=== PATIENT | female | born 1940 | race Caucasian/White ===

== ENCOUNTER 2024-02-28 18:43 | Observation (INO) | payer MEDICARE, SELFPAY ==
[2024-02-28 12:32] VITALS: BP 159/60
--- NOTE | 2024-02-28 14:58 | ED.GENMED ---
History of Present Illness
General
Chief Complaint: Change in Mental Status
Source: patient, family (Daughter Yanna) and ambulance crew
Exam Limitations: altered mental status
Time Seen by Provider: 02/28/24 13:24
Travel History
Have you had any contact with someone who has COVID-19?: No
Do you have any symptoms of coronavirus? Fever > 100 degrees, chills, cough, shortness of breath, sore throat, loss of taste or smell, muscle aches, or headache?: No
History of Present Illness
History of Present Illness:
83-year-old female from home, she states she is here because 'they came here, my daughter says I was acting crazy and I was not.' Patient is upset because she wanted to go to [facility], she is not aware of the name of this hospital
where she is now, she has been belligerent to the nurses not allowing them to complete their assessment, not allowing blood draw or urine collection.
On initial exam patient states she does not want any blood work or urine collection as she had blood work at her PCP Dr. Elizabeth Peters's office within the past week and we should get those results.
I spoke with daughter Yanna states she herself has a behavioral clinical background, her mother lives with her and has been slowly declining functionally and mentally but much worse in the past few weeks and worse today. This morning she found her
mother screaming and yelling at stuffed animals, being paranoid saying there were people in the house that were after her, they were following her, they are hiding and are going to get her. She also did not recognize her daughter saying her
daughter has bright blond hair and you have black hair, neither of which are true. She states during 1 hospitalization recently after neck injury her mother was aggressive, hitting and punching, was diagnosed with a UTI this was within the past 2
months and was put on antibiotics.
Daughter states patient is unmanageable at home and is not comfortable taking her back.
She states family is aware this decline and they have been thinking about 6 moving her to a place for mom,' for now she is comfortable with long-term memory care placement with the [place] where most of her family is.
I spoke with nurse Perez at Dr. Elizabeth Peters's office who states she is very familiar with this patient, patient is very difficult, her difficulty waxes and wanes, she is argumentative with every specialist that she seen she however has not been
confused but can be very belligerent and aggressive.
Past History
Past History
ED Past Medical History: Psychiatric (Dementia)
ED Past Surgical History: Gynecological (breast CA with lumpectomy, hysterectomy)
Social History
Tobacco: Non-smoker
Alcohol: None
Personal:
Living: with family (lives with daughter)
Review of Systems
Review of Systems
Allergies reviewed?: Yes
All Other Systems: ROS reviewed and negative except as documented in HPI and ROS
Constitutional: Denies fever or fatigue
Respiratory: Denies trouble breathing
Cardiac: Denies chest pain
ABD/GI: Denies abdominal pain, nausea, vomiting or diarrhea
: Denies dysuria, frequency, incontinence, difficulty voiding or urgency
Musculoskeletal: Reports neck pain (post op C spine surgery 12/10/23 after a fall); Denies edema
Neurological: Denies headache
Psychiatric: Reports hallucinations (reported by daughter) and other (paranoia reported by daughter)
Phy Exam
Physical Exam
Physical Exam:
GENERAL: No acute distress. Alert to name, does not know where she is.
CONSTITUTIONAL: Afebrile.
EYES: PERRL, conjunctivae normal
Neck: supple. well healed incision from C spine surgery 12/10/23
ENMT: dry mucus membranes, Pharynx nl
RESPIRATORY: Regular respirations, nonlabored, lungs clear.
CARDIOVASCULAR: Regular rate and rhythm, no murmurs, no rubs.
GI: Soft, nontender, normal BS
MUSCULOSKELETAL: Moves with ease. Well perfused. No edema
SKIN: Warm, dry, pink
PSYCH: Cantankerous mood and affect. Well kept,argumentative.
NEUROLOGIC: Awake, alert and oriented x 1. Speech clear. No focal neurological deficits
Course
Orders/Labs/Results
Orders:
Orders
02/28/24 13:25
0.9% Sodium Chloride 500 ml [Nss] 500 ml IV BOLUS
02/28/24 15:35
CT Head W/o Iv Contrast Urgent
Comment:
Reason For Exam: mental status change, delerium, on Eliquis
02/28/24 15:36
Complete Blood Count/With Diff Urgent
Comprehensive Metabolic Panel Urgent
Urinalysis Reflex To Culture Urgent
Date Specimen was Collected: 02/28/24
Time Specimen was Collected: 13:33
Urine Microscopic Reflex Cult Urgent
Urine Culture Urgent
MARCEL Source: U
Specimen Description:
Date Specimen was Collected: 02/28/24
Time Specimen was Collected: 13:33
02/28/24 18:05
Admit/Transfer Patient As Directed
Co-Sign Provider:
Level of Care: Observation services
Assign to:: Medical/Surgical
Physician / Group: moise
Diagnosis: progressive dementia
02/28/24 18:06
Code Status As Directed
Resuscitation Status: Do not resuscitate
Reached after discussion with pt or family/Healthcare POA: Yes
DNR Bracelet Application ONCE
02/28/24 23:00
Atorvastatin [Lipitor] 20 mg PO HS
02/28/24 23:35
Alprazolam [Xanax] 1 mg PO TID
Baclofen [Lioresal] 5 mg PO TID
Latanoprost [Xalatan Ophthalmic Solution] See Dose Instructions BOTH EYES HS
Metoprolol Xl [Toprol Xl] 25 mg PO HS
02/29/24 01:13
Apixaban [Eliquis] 5 mg PO BID
02/29/24 01:13
Activity As Directed
Activity Level: As Tolerated
Pneumatic Compression Sleeves As Directed
Type: Knee high
Vital Signs As Directed
Frequency: Per unit guidelines
DX Deep Vein Thrombosis Video Routine
02/29/24 05:38
Comprehensive Metabolic Panel IN AM
02/29/24 05:39
Complete Blood Count/With Diff IN AM
02/29/24 Breakfast
Regular
At Your Request: Limited Participation
Does patient need a safe tray?: No
02/29/24 08:00
Ascorbic Acid [Vitamin C] 1,000 mg PO DAILY
Lisinopril [Zestril] 40 mg PO DAILY
Metoprolol Xl [Toprol Xl] 37.5 mg PO DAILY
Paroxetine [Paxil] 20 mg PO DAILY
02/29/24 12:00
Digoxin [Lanoxin] 125 mcg PO DAILY@1200
Abnormal Lab Results
02/28/24
15:36
RBC 4.15 L 10^6/uL
(4.20-5.40)
MPV 10.8 H fL
(7.4-10.4)
Neutrophils % 78.2 H %
(42.2-75.2)
Lymphocytes % 15.5 L %
(20.5-51.1)
Carbon Dioxide 32 H mmol/L
(22-30)
Glucose 140 H mg/dl
(70-99)
Urine Nitrite (Reflex) Positive A
(Negative)
Urine Bacteria (Reflex) Few A
(Negative)
02/28/24 15:36
02/28/24 15:36
Vital Signs
Initial and Last Documented VS:
Initial Vital Signs
Temp Pulse Resp BP Pulse Ox
97.6 F 59 20 159/60 100
02/28/24 12:32 02/28/24 12:32 02/28/24 12:32 02/28/24 12:32 02/28/24 12:32
Last Documented Vital Signs
Temp Pulse Resp BP Pulse Ox
98.3 F 46 18 152/55 97
02/29/24 08:41 02/29/24 08:41 02/28/24 22:36 02/29/24 08:41 02/29/24 08:41
MDM/Problems Addressed
Differential Diagnosis Includes:
progressing dementia, UTI, dehydration
MDM/Problems Addressed:
83-year-old female from home, she states she is here because 'they came here, my daughter says I was acting crazy and I was not.' Patient is upset because she wanted to go to [facility], she is not aware of the name of this hospital
where she is now, she has been belligerent to the nurses not allowing them to complete their assessment, not allowing blood draw or urine collection.
On initial exam patient states she does not want any blood work or urine collection as she had blood work at her PCP Dr. Elizabeth Peters's office within the past week and we should get those results.
I spoke with daughter Yanna states she herself has a behavioral clinical background, her mother lives with her and has been slowly declining functionally and mentally but much worse in the past few weeks and worse today. This morning she found her
mother screaming and yelling at stuffed animals, being paranoid saying there were people in the house that were after her, they were following her, they are hiding and are going to get her. She also did not recognize her daughter saying her
daughter has bright blond hair and you have black hair, neither of which are true. She states during 1 hospitalization recently after neck injury her mother was aggressive, hitting and punching, was diagnosed with a UTI this was within the past 2
months and was put on antibiotics.
Daughter states patient is unmanageable at home and is not comfortable taking her back.
She states family is aware this decline and they have been thinking about 6 moving her to a place for mom,' for now she is comfortable with long-term memory care placement with the [place] where most of her family is.
I spoke with nurse Ana at Dr. Elizabeth Peters's office who states she is very familiar with this patient, patient is very difficult, her difficulty waxes and wanes, she is argumentative with every specialist that she seen she however has not been
confused but can be very belligerent and aggressive.
Retrieved records from [facility] physicians PCP office
Patient with history of A-fib on Eliquis, HTN. C1-3 posterior instrumented fusion on 12/09/2023 after a fall, former smoker, no EtOH. She is allergic to Benadryl and iodine.
Reviewed records from her neurologist 02/03/24 during her hospitalization for 'a series of falls,' C-spine injury after a fall, she remains on Eliquis, and it was recommended that she have a Watchman intervention.
His physical exam revealed the patient that was 'alert and oriented x 3, comprehension and language intact, speech clear and coherent.'
Must use walker.
Note scanned into chart.
Retrieved labs from 02/07/24: No clinically significant abnormalities. Results scanned into chart. 4:27 PM
4:27 PM
Patient evaluated by psychiatrist Dr. Ryder Hameed who states he does not 'see acute symptoms or signs of psychosis now'
CBC normal
CMP normal
UA negative
Head CT shows nothing acute
Spoke with daughter Yanna again, again she is refusing to take pt back as she feels pt is unsafe, has frequent falls on Eliquis. She supports placing pt in longterm until her family can figure out a [place] health care facility plan.
Consult in for Case Management and message left on phone that pt needs placement. Awaiting to hear from them
*Critical Care Note
Total Time (30-74mins, 75-104mins- exclusive of procedures): Not Applicable
ED Attending Note
-
Portions of this chart may have been created with voice recognition software.� Occasional wrong word or��sound alike� substitutions may have occurred due to the inherent limitations of voice recognition software.
Discharge Plan
Departure
Patient Disposition: Admit
Date of Disposition: 02/28/24
Time of Disposition: 17:24
Presentation/result/management discussed w/ accepting MD/DO: Hospitalist
Condition: Fair
Discharge Problem:
At high risk for falls, Acute on chronic alteration in mental status
Interventions
Interventions:
*Risk Screen - Suicide Last Done: 02/28/24 12:32
*General Assessment Last Done: 02/28/24 12:32
*Neglect/Abuse Screening Last Done: 02/28/24 12:32
*ED COVID-19 Vaccine History Last Done: 02/28/24 14:23
ED-Psychological Assessment Last Done: 02/28/24 14:22
ED- Neurological Assessment Last Done: 02/28/24 14:22
ED Swallowing Screen Last Done: 02/28/24 19:59
[2024-02-28 15:51] LABS: % Basophils 0.4 % (0-2); % Eosinophils 0.6 % (0-6); % Immature Granulocytes 0.3 % (0-0.5); % Lymphocytes 15.5 % (20.5-51.1); % Neutrophils 78.2 % (42.2-75.2); Absolute Eosinophils 0.1 10^3/uL (0-0.7); Absolute Lymphocytes 1.2 10^3/uL (1.2-3.4); Absolute Monocytes 0.4 10^3/uL (0.1-0.6); Absolute Neutrophils 6.2 10^3/uL (1.4-6.5); Hematocrit 38.7 % (37.0-47.0); Hemoglobin 12.8 g/dL (12.0-16.0); Mean Corp Hgb Conc. 33.1 g/dL (33.0-37.0); Mean Corpuscular Hgb 30.8 pg (27.0-31.0); Mean Corpuscular Volume 93.3 fL (81.0-99.0); Mean Platelet Volume 10.8 fL (7.4-10.4); Nucleated Red Blood Cells % 0 %; Platelet Count 255 10^3/uL (130-400); Red Blood Cell Count 4.15 10^6/uL (4.20-5.40); Red Cell Dist. Width 13.5 % (11.5-14.5); Urine Albumin Negative (Neg - Trace); Urine Bilirubin Negative (Negative); Urine Character Clear (Clear); Urine Color Yellow; Urine Glucose Negative (Negative); Urine Ketone Negative (Negative); Urine Leukocyte Negative (Negative); Urine Nitrite Positive (Negative); Urine Occult Blood Negative (Negative); Urine Specific Gravity 1.025 (<1.030); Urine Urobilinogen Negative (Neg - 1+); White Blood Cell Count 7.9 10^3/uL (4.8-10.8)
[2024-02-28 16:03] LABS: ALT (SGPT) 15 U/L (0-35); AST (SGOT) 28 U/L (14-36); Albumin 4.2 g/dl (3.5-5.0); Alkaline Phosphatase 90 U/L (38-126); Blood Urea Nitrogen 15 mg/dl (7-17); Calcium 9.5 mg/dl (8.4-10.2); Carbon Dioxide 32 mmol/L (22-30); Chloride 104 mmol/L (98-107); Glucose 140 mg/dl (70-99); Sodium 138 mmol/L (135-145); Total Bilirubin 0.5 mg/dl (0.2-1.3); Total Protein 7.3 g/dl (6.3-8.2); eGFR > 60.00
[2024-02-28 16:12] LABS: Urine Bacteria Few (Negative); Urine Red Blood Cell None Seen /HPF (0-2); Urine White Cell 0-2 /HPF (0-5)
--- NOTE | 2024-02-28 17:22 | CS.PSYCHR ---
Consult Summary - Psychiatry
-
Pt is 83 yo female seen due to reported agitation and onset of psychosis. Pt aware of the situation to a degree, stating people think she is crazy. Patient noted to be somewhat belligerent/argumentative with the nurses not allowing them to
complete their assessment, blood draw or urine collection. Dtr reported pt argumentative at baseline, worse over the past week, with onset of paranoia and possible hallucinations. Pt noted with steady mental/cognitive decline over months. Pt
acknowledges some decrease in short-term memory for the past couple months. She states her temperament is due to being '[place]'. Pt denies feeling depressed. She states PCP prescribes Xanax 1 mg up to TID as needed, for anxiety related to loss
of 12 yrs ago.
Psych Hx: anxiety- prescribed Xanax and Paxil 20 mg QD by PCP
PMH: dementia, breast CA with lumpectomy, hysterectomy. During hospitalization recently after neck injury, pt reportedly had aggressive behavior, was diagnosed with a UTI, apparent delirium.
SH: lives with daughter, who is reportedly concerned about being able to manage pt at home. ; retired from job at [employer] for 30 + years.
Family is aware of cognitive decline and have been considering placement options in [place], where most of pt's family lives.
MSE: alert, oriented to self, calm, cooperative with interview, answering questions. Able to discuss the past and make conversation. Affect mildly irritable, mood stable. No agitation. No overt signs of delusions or hallucinations. Insight
limited.
Imp: Dementia, with hx of behavior disturbance, appears calm at this point. No signs of psychosis
Rec: Continue current management, with medications prescribed by PCP. I do not seen any indication for inpatient treatment.
I would not recommend any additional psychotropic medications for now. Outpatient psychiatric follow-up may be helpful for med mgt.
--- NOTE | 2024-02-28 17:30 | EDRN ---
Pt climbed out of stretcher, using bedside table as walker. Pt demanding to have a cell phone to call her daughter. This RN and senior quality technician attempt to redirect patient back to stretcher, pt refused stating ' I don't give a shit if I fall'. This RN
responded using therapeutic communication redirecting patient and with assistance from ER, 2nd RN and senior quality technician patient was guided back to stretcher. Pt provided with phone. Pt claiming that phone is bugged and threatened to throw phone on the floor.
Phone removed from patient, pt given ice water and warm blanket, side rails up x2 and lights dimmed.
--- NOTE | 2024-02-28 18:07 | HPS.HSE ---
Addendum entered and electronically signed by Jaden Connell MD 02/28/24 18:10:
Urine culture pending.
Original Note:
Family Physician
-
Family Physician: NOT KNOW UNKNOWN - PT DOES
Chief Complaint
-
altered mental status
History of Present Illness
83-year-old female past medical history of atrial fibrillation, hypertension, anxiety/depression, presenting for altered mental status. Patient has been having worsening cognitive decline over the past 6 months with personality changes over the
past 3 months particularly worse over the past few weeks and past day. Patient states that daughter thought she was acting crazy but patient denies acting this way. She was upset because she wanted to go to [facility] and refusing lab
work. At this time patient denies any complaints and states that daughter is trying to get rid of her. She states that she is under strain at home while living with her daughter.
Daughter states that patient has been slowly declining functionally and mentally but has been particularly worse past few weeks and today. This morning patient was screaming and yelling at staff and was, being paranoid and stating that there were
people in the house that were after her, following her and out to get her. She also did not recognize her daughter. After 1 recent hospitalization 2 months ago after neck injury patient was aggressive, hitting and punching and was diagnosed with
UTI. Patient is unmanageable at home. Sometimes with suicidal thoughts. Due to the decline over the past several months family is thinking about memory care placement in [place] where her other family is.
As per her primary care office patient is very difficult and argumentative but is not normally confused.
Patient had a neck fracture from a fall 4 months ago and had surgery and afterwards wore neck collar with eventual physical therapy. She was also treated for UTI at this time.
Medical History
Past Medical History
Past Medical History: Reports Other (atrial fibrillation, hypertension, anxiety/depression,)
Past Surgical History: Reports None
Social History
Tobacco: Non-smoker
Alcohol: None
Drug: None
Family History
Family History: Not pertinent
Allergies / Home Medications
Allergies reflects when Allergies were last updated in [employer].
Home Medications with original date entered in [employer]
Allergy/Medication List:
Allergies
Allergy/AdvReac Type Severity Reaction Status Date / Time
diphenhydramine Allergy Unknown Verified 02/28/24 16:48
[From Benadryl]
Iodinated Contrast Media Allergy Unknown Verified 02/28/24 16:48
iodine Allergy Unknown Verified 02/28/24 16:48
mushroom Allergy Unknown Uncoded 02/28/24 16:48
Home Medications
Excedrin 1 tab PO DAILY PRN headache 02/28/24
Loprost 1 drp BOTH EYES DAILY 02/28/24
alprazolam 1 mg tablet 1 mg PO TID 02/28/24
apixaban 5 mg tablet 5 mg PO BID 02/28/24
ascorbic acid (vitamin C) 1,000 mg tablet (Vitamin C) 1,000 mg PO DAILY 02/28/24
baclofen 5 mg tablet 5 mg PO TID 02/28/24
benazepril 40 mg tablet 40 mg PO DAILY 02/28/24
digoxin 125 mcg (0.125 mg) tablet 125 mcg PO DAILY 02/28/24
latanoprost 0.005 % eye drops 1 drp BOTH EYES HS 02/28/24
metoprolol succinate 25 mg tablet,extended release 24 hr 25 mg PO HS 02/28/24
metoprolol succinate 25 mg tablet,extended release 24 hr 37.5 mg PO DAILY 02/28/24
paroxetine HCl 20 mg tablet 20 mg PO DAILY 02/28/24
simvastatin 40 mg tablet 40 mg PO HS 02/28/24
vitamin A-vitamin D3 1,500 mcg PO DAILY 02/28/24
Review of Systems
-
History Source: Patient
A 12 point ROS was completed and negative except as noted: Yes
Constitutional: Reports No Symptoms
EENT: Reports No Symptoms
Respiratory: Reports No Symptoms
Cardiac: Reports No Symptoms
Abdomen/GI: Reports No Symptoms
: Reports No Symptoms
Musculoskeletal: Reports No Symptoms
Skin: Reports No Symptoms
Neurological: Reports No Symptoms
Endocrine: Reports No Symptoms
Hematologic/Lymphatic: Reports No Symptoms
Psych: Reports No Symptoms
Physical Exam
Vital Signs
Vital Signs
Temp Pulse Resp BP Pulse Ox
97.6 F 59 20 159/60 100
02/28/24 12:32 02/28/24 12:32 02/28/24 12:32 02/28/24 12:32 02/28/24 12:32
Physical Exam
General: Well Developed, Well Nourished and No Apparent Distress
HEENT: NormoCephalic, Moist mucous membranes and Atraumatic
Respiratory: Clear
Cardiac: S1/S2 and Regular Rhythm; No Murmur or Rub
GI: Soft, Non Tender, Non Distended and Normal Bowel Sounds; No Organomegaly
Rectal: Deferred by Provider
Musculoskeletal: No Clubbing, No Cyanosis and No Edema
Skin: No Rash
Neuro: Nonfocal/grossly intact
Laboratory Results
-
02/28/24 15:36
02/28/24 15:36
Laboratory Results
Total Bilirubin 0.5 mg/dl (0.2-1.3) 02/28/24 15:36
AST 28 U/L (14-36) 02/28/24 15:36
ALT 15 U/L (0-35) 02/28/24 15:36
Alkaline Phosphatase 90 U/L (38-126) 02/28/24 15:36
Data Reviewed
-
Lab Data: Labs Reviewed by me
Old Records: Reviewed
Impression/Plan
-
IMPRESSION:
PLAN:
# Metabolic encephalopathy likely due to progressive dementia
-Patient denies any complaints, and is alert, doubt any acute underlying medical condition at this time
-Urinalysis shows clear urine, only 0-2 WBC, positive nitrates but negative leukocyte esterase not convincing for UTI
-CT head shows no acute abnormality
-seen by psych
-Case management consulted
Cervical neck fracture s/p surgery 4 months ago
-undergoing PT
Atrial fibrillation unspecified type
-Continue Eliquis
-Continue digoxin
-Continue metoprolol
Essential hypertension
-Continue benazepril
Anxiety/depression
-Continue alprazolam, paroxetine
DNR/DNI
DVT prophylaxis�SCDs
Regular diet
[2024-02-28 20:52] VITALS: BP 180/73
--- NOTE | 2024-02-28 20:57 | EDRN ---
Patient attemtping to climb out of stretcher, threw water at robotics technologist and was attempting to bite, kick, scratch and hit staff in room. Pt was hallucinating, talking to individuals that were not in the room. Pt had to be restrained by 2 ER techs and 2
RNs, pt then verbally insulting to staff, calling all staff in the room 'idiots' and ' weak'. Pt stated ' you should all just '. Pt unable to be redirected, therapeutic communication not effective. Dr. Almeida made aware.
[2024-02-28 21:00] VITALS: BP 187/84
[2024-02-28 22:36] VITALS: BP 191/76
[2024-02-28 23:00] VITALS: BP 132/100
[2024-02-28 23:17] VITALS: BP 153/69
[2024-02-28] MEDS: LIORESAL 5 MG PO (23:48)
[2024-02-28] MEDS: XANAX 1 MG PO (23:49)
[2024-02-28] MEDS: TOPROL XL 25 MG PO (23:49)
[2024-02-29] VITALS (7 sets, daily range): BP systolic 135–161; BP diastolic 53–60; BMI 23.6; BMI 23.3
[2024-02-29] MEDS: XALATAN OPHTHALMIC SOLUTION 1 DROP BOTH EYES ×2 (01:23→21:36)
[2024-02-29] MEDS: LIPITOR PO (01:28)
[2024-02-29] MEDS: ELIQUIS PO (01:28)
[2024-02-29 06:25] LABS: % Basophils 0.5 % (0-2); % Eosinophils 1.5 % (0-6); % Immature Granulocytes 0.2 % (0-0.5); % Lymphocytes 24.3 % (20.5-51.1); % Monocytes 11.6 % (1.7-9.3); % Neutrophils 61.9 % (42.2-75.2); Absolute Eosinophils 0.1 10^3/uL (0-0.7); Absolute Lymphocytes 1.4 10^3/uL (1.2-3.4); Absolute Monocytes 0.7 10^3/uL (0.1-0.6); Absolute Neutrophils 3.7 10^3/uL (1.4-6.5); Hematocrit 34.2 % (37.0-47.0); Hemoglobin 11.4 g/dL (12.0-16.0); Mean Corp Hgb Conc. 33.3 g/dL (33.0-37.0); Mean Corpuscular Hgb 30.4 pg (27.0-31.0); Mean Corpuscular Volume 91.2 fL (81.0-99.0); Mean Platelet Volume 10.9 fL (7.4-10.4); Nucleated Red Blood Cells % 0 %; Platelet Count 238 10^3/uL (130-400); Red Blood Cell Count 3.75 10^6/uL (4.20-5.40); Red Cell Dist. Width 13.4 % (11.5-14.5); White Blood Cell Count 5.9 10^3/uL (4.8-10.8)
[2024-02-29 07:03] LABS: ALT (SGPT) 12 U/L (0-35); AST (SGOT) 25 U/L (14-36); Albumin 3.4 g/dl (3.5-5.0); Alkaline Phosphatase 78 U/L (38-126); Blood Urea Nitrogen 19 mg/dl (7-17); Calcium 9.2 mg/dl (8.4-10.2); Carbon Dioxide 27 mmol/L (22-30); Chloride 107 mmol/L (98-107); Estimated Creatinine Clearance 41 ml/min; Glucose 147 mg/dl (70-99); Potassium 3.7 mmol/L (3.5-5.1); Sodium 137 mmol/L (135-145); Total Bilirubin 0.4 mg/dl (0.2-1.3); Total Protein 6.2 g/dl (6.3-8.2); eGFR > 60.00
[2024-02-29] MEDS: TOPROL XL PO (08:39)
[2024-02-29] MEDS: VITAMIN C 1000 MG PO (08:42)
[2024-02-29] MEDS: PAXIL 20 MG PO (08:42)
[2024-02-29] MEDS: LIORESAL 5 MG PO ×3 (08:42→21:35)
[2024-02-29] MEDS: ZESTRIL 40 MG PO (08:42)
[2024-02-29] MEDS: XANAX 1 MG PO ×3 (08:42→21:36)
[2024-02-29] MEDS: ELIQUIS 5 MG PO ×2 (08:42→21:35)
--- NOTE | 2024-02-29 10:29 | W.PN.HOSP.TC ---
Addendum entered and electronically signed by Isaac Barbour MD 02/29/24 14:05:
Updated daughter over the phone in detail. Per daughter to call her anytime if any assistance needed in regards with patient or if with patient with agitation.
Original Note:
Today's Communication/Plan
-
Await placement.
Psych recommendation
Assessment / Plan
Assessment / Plan
# Dementia with behavioral disturbances
-Patient denies any complaints, and is alert, doubt any acute underlying medical condition at this time. States she needs to go to therapy as with recent surgery.
-Urinalysis shows clear urine, only 0-2 WBC, positive nitrates but negative leukocyte esterase not convincing for UTI
-CT head shows no acute abnormality
-seen by psych
-Case management consulted
Cervical neck fracture s/p surgery 4 months ago
-undergoing PT
Atrial fibrillation unspecified type
-Continue Eliquis
-Continue digoxin
-Continue metoprolol
Essential hypertension
-Continue benazepril
Anxiety/depression
-Continue alprazolam, paroxetine
DNR/DNI
DVT prophylaxis�SCDs
Regular diet
Anticipated Discharge: Today
Subjective/Interval History
-
Date of Service: February 29, 2024
finished breakfast
wants to talk to daughter
Objective Data
-
Labs:
Laboratory Results
02/29/24 02/29/24
05:38 05:39
WBC 5.9
Hgb 11.4 L
Hct 34.2 L
Plt Count 238
Sodium 137
Potassium 3.7
Chloride 107
Carbon Dioxide 27
BUN 19 H
Creatinine 0.9
Glucose 147 H
Calcium 9.2
Total Bilirubin 0.4
AST 25
ALT 12
Alkaline Phosphatase 78
Vital Signs:
Vital Signs
Temp Pulse Resp BP Pulse Ox
98.3 F 46 18 152/55 97
02/29/24 08:41 02/29/24 08:41 02/28/24 22:36 02/29/24 08:41 02/29/24 08:41
I&O
02/28/24 02/29/24 03/01/24
06:59 06:59 06:59
Intake Total 480 / 480
Balance 480 / 480
Physical Exam
-
General: No Apparent Distress and Comfortable
HEENT: Moist Mucous Membranes
Neuro: Awake
Psych: Agitated
[2024-02-29] MEDS: CEFTIN 250 MG PO ×2 (12:14→21:35)
--- NOTE | 2024-02-29 13:52 | CM ---
Addendum entered by Shavonne Frankel 02/29/24 16:09:
Call with dtr who notes tour of assisted living scheduled for Thr 03/02 in [place]
Assisted living does not want clinicals until after tour and financial application
She believes process will take about one week or so to set up
Dtr does not feel comfortable caring for pt at home any longer
Offered private duty services and dtr refused, other family also not able to assist at this time
CM discussed possible short term respite at local facilities until LT arrangements can be made
SNF private pay vs PCU private pay respite
Dtr in agreement with possible short term option if needed
BARTH verbally reviewed over phone, copy emailed to [email or web address]
Discharge Disposition- LT placement
Original Note:
CM consult in ED for placement
Call with dtr/Yanna
Pt has been living with dtr since early 2022, previously was living in [place] where the rest of her children live
They reside in a 2[address] and pt has a first floor set up along with handicap accessible bathroom
Pt is typically independent with her care needs- [facility] has been recommended and pt will not use
Dtr has home equipped with alarms for pt's safety
Pt is current with [facility] for PT/OT/SN
Pt does not have a local PCP and dtr takes her to the long-time PCP in [place]
PCP- Dr Peters/[place]
Dtr notes increasing confusion and behaviors
Dtr with advanced CA and own medical issues
Unable to provide 24/7 supervision and physical assistance at this point
Dtr is working with [facility] and pursing LT placement at memory care vs assisted living in [place]
They are interested in [facility]
CM also suggested a ST respite stay locally until LT plans in [place] can be arranged
Dtr in agreement- dtr speaking with [place] this afternoon regarding financials and application
Will follow up CM on outcome of call
Dtr requesting call regarding medical update
TT/Dr Barbour
Discharge Disposition- memory care respite vs LT care
--- NOTE | 2024-02-29 17:40 | PTCARENOTE ---
pt brought up to 2N from the emergency room this afternoon and received by this nurse. pt aaox2. disoriented to place. pt is a x1 assist with rolling walker and is on a bed and chair alarm at this time. per admission paperwork sent from ED pt needs
apple sauce for large pills. pt took 1600 pills for this nurse whole with water, but they were small pills. pt is ringing with call light appropriately at this time.
[2024-02-29] MEDS: LIPITOR 20 MG PO (21:35)
[2024-02-29] MEDS: TOPROL XL 25 MG PO (21:36)
[2024-03-01 03:19] VITALS: BP 152/65
[2024-03-01 07:05] VITALS: BP 148/62
[2024-03-01 07:21] LABS: Digoxin 0.5 ng/ml (0.8-2.0)
[2024-03-01] MEDS: CEFTIN 250 MG PO ×2 (08:51→19:58)
[2024-03-01] MEDS: VITAMIN C 1000 MG PO (08:51)
[2024-03-01] MEDS: ZESTRIL 40 MG PO (08:51)
[2024-03-01] MEDS: PAXIL 20 MG PO (08:51)
[2024-03-01] MEDS: ELIQUIS 5 MG PO ×2 (08:51→19:58)
[2024-03-01] MEDS: TOPROL XL 37.5 MG PO (08:52)
[2024-03-01] MEDS: XANAX 1 MG PO ×3 (08:52→21:08)
[2024-03-01] MEDS: LIORESAL 5 MG PO ×3 (08:52→21:09)
[2024-03-01 11:05] VITALS: BP 143/57
--- NOTE | 2024-03-01 11:27 | W.PN.HOSP.TC ---
Addendum entered and electronically signed by Isaac Barbour MD 03/01/24 12:42:
Called daughter to obtain response. Left voicemail.
Patient with heart rate in the lower end and bradycardia will DC digoxin for now
Original Note:
Today's Communication/Plan
-
Await placement
DC a.m. metoprolol
Monitor heart rate
Continue to biotics
Assessment / Plan
Assessment / Plan
# Dementia with behavioral disturbances
-CT head shows no acute abnormality
-seen by psych
-Case management consulted
Cervical neck fracture s/p surgery 4 months ago
-undergoing PT
#E. coli UTI
Continue with p.o. antibiotics
Atrial fibrillation unspecified type
-Continue Eliquis
-Continue digoxin levels checked and to be 0.5 (did not receive dose yesterday) may need to consider DC digoxin
-With bradycardia. Will DC a.m. metoprolol. Cont toprol 25mg qhs.
Essential hypertension
-Continue benazepril
Anxiety/depression
-Continue alprazolam, paroxetine
DNR/DNI
DVT prophylaxis�on Eliquis
Discussed with daughter Anna over the phone in detail on 02/28.
Anticipated Discharge: Within 24 hours
Subjective/Interval History
-
Date of Service: March 01, 2024
This morning patient calm and answering all questions
Eating breakfast
Objective Data
-
Vital Signs:
Vital Signs
Temp Pulse Resp BP Pulse Ox
98.2 F 50 12 148/62 96
03/01/24 07:05 03/01/24 07:05 03/01/24 07:05 03/01/24 08:51 03/01/24 10:18
I&O
02/29/24 03/01/24 03/02/24
06:59 06:59 06:59
Intake Total 480 / 480 480 / 480
Balance 480 / 480 480 / 480
Physical Exam
-
General: No Apparent Distress and Comfortable
HEENT: Moist Mucous Membranes
Respiratory: Clear to Auscultation
Cardiac: Regular Rhythm, S1/S2 and Bradycardic
GI: Nontender, Nondistended and Normal Bowel Sounds
Neuro: Awake
Psych: Calm
--- NOTE | 2024-03-01 17:25 | CM ---
Spoke with daughter at length. She is touring [place] in [place] on 03/02/24. She anticipates she will bring her mother home with family and/or outside assistance until she can arrange for AL accommodations.
[2024-03-01 17:48] VITALS: BP 146/57
[2024-03-01 19:55] VITALS: BP 137/57
[2024-03-01] MEDS: LIPITOR 20 MG PO (21:08)
[2024-03-01] MEDS: XALATAN OPHTHALMIC SOLUTION 1 DROP BOTH EYES (21:09)
[2024-03-01] MEDS: TOPROL XL PO (21:09)
[2024-03-01 23:05] VITALS: BP 150/54
[2024-03-02] VITALS (8 sets, daily range): BP systolic 112–170; BP diastolic 49–79; PULSE 52; O2SAT 98
[2024-03-02] MEDS: VITAMIN C 1000 MG PO (08:09)
[2024-03-02] MEDS: ELIQUIS 5 MG PO ×2 (08:10→20:58)
[2024-03-02] MEDS: ZESTRIL 40 MG PO (08:10)
[2024-03-02] MEDS: XANAX 1 MG PO ×3 (08:11→20:58)
[2024-03-02] MEDS: PAXIL 20 MG PO (08:11)
[2024-03-02] MEDS: LIORESAL 5 MG PO ×3 (08:11→20:58)
[2024-03-02] MEDS: CEFTIN 250 MG PO ×2 (08:11→20:57)
--- NOTE | 2024-03-02 12:26 | W.PN.HOSP.TC ---
Today's Communication/Plan
-
await home w/VN vs. SNF
cm
procardia
op cards f/u in [place]
Assessment / Plan
Assessment / Plan
# Dementia with behavioral disturbances
-CT head shows no acute abnormality
-seen by psych
-Case management consulted
Cervical neck fracture s/p surgery 4 months ago
-undergoing PT
#E. coli UTI
Continue with p.o. antibiotics
Atrial fibrillation unspecified type
-Continue Eliquis
-With bradycardia. Will DC a.m. metoprolol and digoxin. Cont toprol 25mg qhs.
Essential hypertension
-Continue benazepril
-due to bradycardia -toprol am dose stopped
-start procardia
Anxiety/depression
-Continue alprazolam, paroxetine
DNR/DNI
DVT prophylaxis�on Eliquis
Discussed with daughter Anna over the phone in detail on 02/28 and 03/01.
Anticipated Discharge: Today
Subjective/Interval History
-
Date of Service: March 02, 2024
wants to walk with PT
calm
not agitated
Objective Data
-
Vital Signs:
Vital Signs
Temp Pulse Resp BP Pulse Ox
98.1 F 52 16 170/69 98
03/02/24 11:05 03/02/24 11:05 03/02/24 11:05 03/02/24 11:05 03/02/24 11:05
I&O
03/01/24 03/02/24 03/03/24
06:59 06:59 06:59
Intake Total 480 / 480 1320 / 1320
Balance 480 / 480 1320 / 1320
Physical Exam
-
General: No Apparent Distress and Comfortable
HEENT: Moist Mucous Membranes and Other (midline cervical spine scar from surgery noted-healing appropriately)
Respiratory: Clear to Auscultation
Cardiac: Regular Rhythm, S1/S2 and Bradycardic
GI: Soft, Nontender, Nondistended and Normal Bowel Sounds
Rectal: Deferred by Provider
Musculoskeletal: No Edema
Neuro: Awake
Psych: Calm and Apparent Dementia
[2024-03-02] MEDS: PROCARDIA XL (EXTENDED RELEASE) 30 MG PO (13:17)
--- NOTE | 2024-03-02 17:38 | CM ---
Discharge Plan of Care: Home with daughter. Daughter was to tour AL in [place] today. Will follow-up on visit.
[2024-03-02] MEDS: LIPITOR 20 MG PO (20:57)
[2024-03-02] MEDS: XALATAN OPHTHALMIC SOLUTION 1 DROP BOTH EYES (20:58)
[2024-03-02] MEDS: TOPROL XL 25 MG PO (21:00)
[2024-03-03 03:00] VITALS: BP 126/56
[2024-03-03 06:52] VITALS: BP 130/54
[2024-03-03] MEDS: ELIQUIS 5 MG PO ×2 (08:55→20:46)
[2024-03-03] MEDS: ZESTRIL 40 MG PO (08:56)
[2024-03-03] MEDS: CEFTIN 250 MG PO ×2 (08:56→20:46)
[2024-03-03] MEDS: LIORESAL 5 MG PO ×3 (08:56→21:06)
[2024-03-03] MEDS: VITAMIN C 1000 MG PO (08:57)
[2024-03-03] MEDS: XANAX 1 MG PO ×2 (08:57→15:08)
[2024-03-03] MEDS: PAXIL 20 MG PO (08:57)
[2024-03-03 11:00] VITALS: BP 143/70
--- NOTE | 2024-03-03 12:57 | W.PN.HOSP.TC ---
Today's Communication/Plan
-
Adjust Toprol dose
Monitor heart rate
DC home tomorrow tentatively
Assessment / Plan
Assessment / Plan
# Dementia with behavioral disturbances
-CT head shows no acute abnormality
-seen by psych
-Case management consulted
Cervical neck fracture s/p surgery 4 months ago
-undergoing PT
#E. coli UTI
Continue with p.o. antibiotics
Atrial fibrillation unspecified type
-Continue Eliquis
-Telemetry reviewed and no pauses.
-Patient with bradycardia. Heart rate has improved. Digoxin discontinued. Metoprolol a.m. dose discontinued. Will decrease bedtime Toprol to 12.5 mg nightly and monitor heart rate overnight.
Essential hypertension
-Continue benazepril
-due to bradycardia -toprol am dose stopped
-If blood pressure elevated can consider starting hydralazine
Anxiety/depression
-Continue alprazolam, paroxetine
DNR/DNI
DVT prophylaxis�on Eliquis
Discussed with daughter Anna over the phone in detail on 02/28 and 03/01 and 03/03.
Anticipated Discharge: Within 24 hours
Subjective/Interval History
-
Date of Service: March 03, 2024
No overnight events
Patient not agitated
Afebrile
Objective Data
-
Vital Signs:
Vital Signs
Temp Pulse Resp BP Pulse Ox
98.2 F 53 16 130/54 93
03/03/24 06:52 03/03/24 08:56 03/03/24 06:52 03/03/24 08:56 03/03/24 06:52
I&O
03/02/24 03/03/24 03/04/24
06:59 06:59 06:59
Intake Total 1320 / 1320 900 / 900
Balance 1320 / 1320 900 / 900
Data Reviewed
-
Total Time Spent with Patient (in minutes): 56
[2024-03-03 14:42] VITALS: BP 140/60
--- NOTE | 2024-03-03 15:43 | CM ---
Discharge Plan of Care: Therapy recommendation of 03/02/24 recommended SNF. Left message for daughter for preferences. Placed referrals based on [facility] code [id number], patient and daughter's address.
[2024-03-03 19:15] VITALS: BP 142/63
[2024-03-03] MEDS: XANAX PO (21:01)
[2024-03-03] MEDS: LIPITOR 20 MG PO (21:06)
[2024-03-03] MEDS: XALATAN OPHTHALMIC SOLUTION 1 DROP BOTH EYES (21:06)
[2024-03-03] MEDS: TOPROL XL 12.5 MG PO (22:43)
[2024-03-03 23:02] VITALS: BP 147/64
[2024-03-04 03:53] VITALS: BP 157/68
[2024-03-04] MEDS: APRESOLINE 5 MG IV (03:59)
[2024-03-04] MEDS: FLUSH (NSS) 2 FLUSH IV (04:00)
[2024-03-04 07:10] VITALS: BP 144/65
[2024-03-04] MEDS: CEFTIN 250 MG PO ×2 (08:10→19:32)
[2024-03-04] MEDS: XANAX 1 MG PO ×3 (08:10→22:32)
[2024-03-04] MEDS: ZESTRIL 40 MG PO (08:10)
[2024-03-04] MEDS: VITAMIN C 1000 MG PO (08:10)
[2024-03-04] MEDS: LIORESAL 5 MG PO ×3 (08:10→22:34)
[2024-03-04] MEDS: PAXIL 20 MG PO (08:10)
[2024-03-04] MEDS: ELIQUIS 5 MG PO ×2 (08:12→19:32)
--- NOTE | 2024-03-04 10:54 | W.PN.HOSP.TC ---
Addendum entered and electronically signed by Isaac Barbour MD 03/04/24 11:01:
called daughter. no response. left detailed message.
Original Note:
Today's Communication/Plan
-
dc today
cont abx course
bb dose adjusted
Assessment / Plan
Assessment / Plan
# Dementia with behavioral disturbances
-CT head shows no acute abnormality
-seen by psych
-Case management consulted
Cervical neck fracture s/p surgery 4 months ago
-undergoing PT
#E. coli UTI
Continue with p.o. antibiotics
Atrial fibrillation unspecified type
-Continue Eliquis
-Telemetry reviewed and no pauses.
-Patient with bradycardia. Heart rate has improved. Digoxin discontinued. Metoprolol a.m. dose discontinued. Will decrease bedtime Toprol to 12.5 mg nightly with improvement in HR.
Essential hypertension
-Continue benazepril
-due to bradycardia -toprol am dose stopped
-If blood pressure elevated can consider starting hydralazine
Anxiety/depression
-Continue alprazolam, paroxetine
DNR/DNI
DVT prophylaxis�on Eliquis
Discussed with almas Castillo over the phone in detail on 02/28 and 03/01 and 03/03.
More than 30 minutes spent in discharge including
Final examination of the patient
Summarizing hospital stay
Instructions for continuing care to all relevant caregivers
Preparation of discharge records, prescriptions, and referral forms
Total time spent (in minutes): 50
Anticipated Discharge: Today
Subjective/Interval History
-
Date of Service: March 04, 2024
No overnight events
HR improved on tele
Objective Data
-
Vital Signs:
Vital Signs
Temp Pulse Resp BP Pulse Ox
98.5 F 66 14 144/65 96
03/04/24 07:10 03/04/24 07:10 03/04/24 07:10 03/04/24 07:10 03/04/24 08:00
I&O
03/03/24 03/04/24 03/05/24
06:59 06:59 06:59
Intake Total 900 / 900 880 / 880
Balance 900 / 900 880 / 880
Physical Exam
-
General: No Apparent Distress and Comfortable
HEENT: Moist Mucous Membranes and Other (midline cervical spine scar from surgery noted-healing appropriately)
Respiratory: Clear to Auscultation
Cardiac: Regular Rhythm and S1/S2
GI: Soft, Nontender, Nondistended and Normal Bowel Sounds
Rectal: Deferred by Provider
Musculoskeletal: No Edema
Neuro: Awake
Psych: Calm and Apparent Dementia
[2024-03-04 11:20] VITALS: BP 144/60
--- NOTE | 2024-03-04 13:00 | CM ---
Patient medically cleared for discharge. Spoke with daughter who will not be home for majority of day as she has prescheduled appointments. She is unable to transport patient today and no one will be home with patient. There is no one else to
transport patient and stay with her today. Daughter will transport patient home at 10am on 03/05/24. MD aware.
[2024-03-04] MEDS: LIPITOR 20 MG PO (22:32)
[2024-03-04] MEDS: TOPROL XL 12.5 MG PO (22:32)
[2024-03-04] MEDS: XALATAN OPHTHALMIC SOLUTION 1 DROP BOTH EYES (22:35)
[2024-03-04 23:48] VITALS: BP 158/78
--- NOTE | 2024-03-05 06:06 | PTCARENOTE ---
Patient woke up two times and thought the wall across from her bed was moving. She was quickly re-oriented.
[2024-03-05 07:10] VITALS: BP 165/72
[2024-03-05] MEDS: ELIQUIS 5 MG PO (08:00)
[2024-03-05] MEDS: PAXIL 20 MG PO (08:00)
[2024-03-05] MEDS: LIORESAL 5 MG PO (08:00)
[2024-03-05] MEDS: XANAX 1 MG PO (08:00)
[2024-03-05] MEDS: ZESTRIL 40 MG PO (08:00)
[2024-03-05] MEDS: CEFTIN 250 MG PO (08:00)
[2024-03-05] MEDS: VITAMIN C 1000 MG PO (08:00)
--- NOTE | 2024-03-05 10:48 | PTCARENOTE ---
Patient discharged home. This RN removed patient's IV, patient assisted in gathering belongings and dressing by tech. Discharge instructions reviewed with patient who verbalized understanding, discharge packed placed in patient's bag to take home.
Patient transported home by daughter, taken down to [facility] via staff escort and wheelchair.
--- NOTE | 2024-03-05 11:07 | CM ---
Patient has been medically cleared for discharged to home with no additional skilled services. She lives with daughter who will transport home.
--- NOTE | 2024-03-05 11:37 | W.PN.HOSP.TC ---
Today's Communication/Plan
-
DC home
Outpatient PCP and cardiology follow-up
P.o. antibiotics on discharge
Assessment / Plan
Assessment / Plan
# Dementia with behavioral disturbances
-CT head shows no acute abnormality
-seen by psych
-Case management consulted
Cervical neck fracture s/p surgery 4 months ago
-undergoing PT
#E. coli UTI
Continue with p.o. antibiotics and complete course.
Atrial fibrillation unspecified type
-Continue Eliquis
-Telemetry reviewed and no pauses.
-Patient with bradycardia. Heart rate has improved. Digoxin discontinued. Metoprolol a.m. dose discontinued. Will decrease bedtime Toprol to 12.5 mg nightly with improvement in HR noted on telemetry.
Essential hypertension
-Continue benazepril
-due to bradycardia -toprol am dose stopped
-Outpatient PCP follow-up.
Anxiety/depression
-Continue alprazolam, paroxetine
DNR/DNI
DVT prophylaxis�on Eliquis
Discussed with daughter Anna over the phone in detail on 02/28 and 03/01 and 03/03. Left message on 03/04 and no return phone call. Per previous discussion with daughter she wanted patient to come home as she is working on long-term care
establishment/placement in [place] and did not want her to go to SNF for short period of time from the hospital..
More than 30 minutes spent in discharge including
Final examination of the patient
Summarizing hospital stay
Instructions for continuing care to all relevant caregivers
Preparation of discharge records, prescriptions, and referral forms
Total time spent (in minutes): 51
Anticipated Discharge: Today
Subjective/Interval History
-
Date of Service: March 05, 2024
Seen and examined earlier today
Patient eager to go home
Heart rate has improved
Objective Data
-
Vital Signs:
Vital Signs
Temp Pulse Resp BP Pulse Ox
99 F 69 16 165/72 95
03/05/24 07:10 03/05/24 08:00 03/05/24 07:10 03/05/24 08:00 03/05/24 08:47
I&O
03/04/24 03/05/24 03/06/24
06:59 06:59 06:59
Intake Total 880 / 880 840 / 840
Balance 880 / 880 840 / 840
Physical Exam
-
General: No Apparent Distress and Comfortable
HEENT: Moist Mucous Membranes and Other (midline cervical spine scar from surgery noted-healing appropriately)
Respiratory: Clear to Auscultation
Cardiac: Regular Rhythm and S1/S2
GI: Soft, Nontender, Nondistended and Normal Bowel Sounds
Rectal: Deferred by Provider
Musculoskeletal: No Edema
Neuro: Awake and No Motor Deficits
Psych: Calm and Apparent Dementia
--- NOTE | 2024-03-05 11:39 | W.DCSUMMARY ---
Discharge Summary
Discharge Data
Date of Admission: 02/28/24
Date of Discharge: 03/05/24
-
Pending Results: No
Hospital Course
83-year-old female past medical history of A-fib, hypertension, anxiety, depression, cervical neck fracture status post surgery, dementia who is presenting with severe agitation and behavioral disturbances. Patient was found to E. coli urinary
tract infection was started on antibiotics. Patient also with bradycardic episode on telemetry and digoxin was discontinued. Patient persistently bradycardic and a.m. dose of metoprolol 37.5 mg was discontinued. Patient persistently remained
bradycardic with low heart rate in mid 50s and metoprolol at bedtime dose was decreased to 12.5 mg. Patient heart rate improved. Patient was eval by PT and OT who recommended nursing home facility. However patient and his daughter want patient
to go home with VN. Daughter is looking into establishment/space placement outpatient and long-term care in [place]. Patient was discharged home with [facility] with outpatient family doctor and cardiology follow-up
Discharge Plan
-
Patient Disposition: Home with Home Care
Discharge Diagnosis/Procedures: Dementia with behavioral disturbances
E. coli urinary tract infection
Atrial fibrillation with bradycardia
Condition: Fair
Diet: As tolerated and Regular
Activity: With assistance and As tolerated
Driving Restrictions: No driving
Activity Restrictions/Additional Instructions:
Follow-up with primary cardiology in [place].
Referrals:
UNKNOWN - PT DOES,NOT KNOW [Family Provider] - in less than 1 week
Additional Discharge Medication Instructions: Digoxin was discontinued. Metoprolol am dose discontinued. Metoprolol bedtime dose decreased to 12.5 mg.
Prescriptions:
New
cefuroxime axetil 250 mg Tablet
250 mg PO BID 1 Days Qty: 2 0RF
metoprolol succinate 25 mg Tablet Extended Release 24 Hr
12.5 mg PO HS 30 Days Qty: 15 0RF
Continued
latanoprost 0.005 % drops
1 drp BOTH EYES HS
ascorbic acid (vitamin C) [Vitamin C] 1,000 mg Tablet
1,000 mg PO DAILY
alprazolam 1 mg tablet
1 mg PO TID
Patient Comments:
02/28/2024: last filled 01/31/24, 90 tabs for 30 days from [id number]
simvastatin 40 mg tablet
40 mg PO HS
paroxetine HCl 20 mg tablet
20 mg PO DAILY
benazepril 40 mg tablet
40 mg PO DAILY
apixaban 5 mg Tablet
5 mg PO BID
baclofen 5 mg tablet
5 mg PO TID
vitamin A-vitamin D3
1,500 mcg PO DAILY
Discontinued
digoxin 125 mcg (0.125 mg) tablet
125 mcg PO DAILY
metoprolol succinate 25 mg tablet extended release 24 hr
37.5 mg PO DAILY
metoprolol succinate 25 mg tablet extended release 24 hr
25 mg PO HS
Excedrin
1 tab PO DAILY PRN (Reason: headache)
Discharge Orders:
Discharge Patient (As Directed); Ordered 03/04/24
Ordered By: Isaac Barbour
Discharge Date and Time
Discharge Date/Time: 03/05/24 10:51
Print Language: KAZAKH
== END 2024-03-05 10:51 | disposition home or self-care (01) ==
LOC: 2 NORTH 18:43
PROVIDERS: Registered Nurse; ADMITTING PHYSICIAN Hospitalist; ATTENDING PHYSICIAN Hospitalist; EMERGENCY PHYSICIAN Emergency Medicine; OTHER PHYSICIAN Psychiatry & Neurology Psychiatry
DX: N39.0 Urinary tract infection, site not specified (principal); G93.41 Metabolic encephalopathy; F03.911 Unspecified dementia, unspecified severity, with agitation; I48.91 Unspecified atrial fibrillation; I10 Essential (primary) hypertension; F03.94 Unspecified dementia, unspecified severity, with anxiety; F03.93 Unspecified dementia, unspecified severity, with mood disturbance; F32.A Depression, unspecified; B96.20 Unspecified Escherichia coli [E. coli] as the cause of diseases classified elsewhere; R00.1 Bradycardia, unspecified; Z66 Do not resuscitate; Z79.01 Long term (current) use of anticoagulants; Z79.899 Other long term (current) drug therapy; Z85.3 Personal history of malignant neoplasm of breast; Z87.440 Personal history of urinary (tract) infections
CPT/HCPCS: 70450; 80053; 80162; 81003; 81015; 85025; 87086; 87088; 87186; 97116; 97162; 99285; G0378